=== PATIENT | female | born 1975 | race Caucasian/White ===

== ENCOUNTER 2019-10-29 16:13 | Emergency (ER) | payer OTHER ==
[~2019-10-29] VITALS: Ht 162.6 cm; Wt 54.4 kg
[2019-10-29] MEDS ORDERED: NORFLEX100 MG PO (16:56)
[2019-10-29] MEDS ORDERED: MOBIC7.5 MG PO (16:56)
[2019-10-29 17:38] VITALS: BP 121/66
== END 2019-10-29 17:39 | disposition home or self-care (01) ==
LOC: ER 16:13
DX: S39.012A Strain of muscle, fascia and tendon of lower back, initial encounter (principal); F17.210 Nicotine dependence, cigarettes, uncomplicated; X50.9XXA Other and unspecified overexertion or strenuous movements or postures, initial encounter; Y93.89 Activity, other specified; Y92.89 Other specified places as the place of occurrence of the external cause; Y99.8 Other external cause status